=== PATIENT | male | born 1990 | race Caucasian/White ===

== ENCOUNTER 2019-08-03 19:00 | Emergency (ER) | payer BC ==
[~2019-08-03] VITALS: Ht 177.8 cm; Wt 90.7 kg
[2019-08-03] MEDS ORDERED: MAGIC MOUTHWASH SW&SWALLOW (19:55)
[2019-08-03] MEDS ORDERED: BACTRIM DS TAB1 EACH PO (19:55)
[2019-08-03] MEDS ORDERED: CENTANY30 GM TOP (19:55)
[2019-08-03 20:05] VITALS: BP 180/97
== END 2019-08-03 20:05 | disposition home or self-care (01) ==
LOC: M.ERS 19:00
DX: R21 Rash and other nonspecific skin eruption (principal); Z88.6 Allergy status to analgesic agent; Z88.8 Allergy status to other drugs, medicaments and biological substances